=== PATIENT | female | born 1985 | race Caucasian/White ===

== ENCOUNTER 2016-07-05 02:43 | Emergency (ER) | payer OTHER ==
[~2016-07-05] VITALS: Ht 167.6 cm; Wt 76.2 kg
[2016-07-05 03:27] VITALS: BP 128/94
[2016-07-05] MEDS ORDERED: NEOMYCIN-BACITRACIN-POLYM UNITDOSE PKG TOP OINT TOP ONE (03:41)
[2016-07-05] MEDS ORDERED: NEOMYCIN-BACITRACIN-POLYM 15GM TOP OINT TOP ONE (03:45)
== END 2016-07-05 04:10 | disposition home or self-care (01) ==
LOC: ER 03:41
DX: S61.215A Laceration without foreign body of left ring finger without damage to nail, initial encounter (principal); Y08.89XA Assault by other specified means, initial encounter; Y93.89 Activity, other specified; Y99.0 Civilian activity done for income or pay; Y92.89 Other specified places as the place of occurrence of the external cause